=== PATIENT | female | born 1990 | race Caucasian/White ===

== ENCOUNTER → 2024-02-16 06:20 | Day surgery (SDC) | payer BC, SELFPAY | LOC: GI 06:20 | PROVIDERS: ATTENDING PHYSICIAN Internal Medicine Gastroenterology | DX: K62.5 Hemorrhage of anus and rectum (principal); K64.8 Other hemorrhoids; R19.4 Change in bowel habit | CPT/HCPCS: 45380; 88305 ==

== ENCOUNTER → 2024-04-19 13:18 | Outpatient (REF) | payer BC, SELFPAY | LOC: HWRAD 13:18 | PROVIDERS: ATTENDING PHYSICIAN Nurse Practitioner Family | DX: N92.0 Excessive and frequent menstruation with regular cycle (principal) | CPT/HCPCS: 76830; 76856 ==

== ENCOUNTER → 2024-08-07 13:50 | Outpatient (REF) | payer BC, SELFPAY | LOC: RAD 13:50 | PROVIDERS: ATTENDING PHYSICIAN Nurse Practitioner Family | DX: O26.859 Spotting complicating pregnancy, unspecified trimester (principal) | CPT/HCPCS: 76801; 76817 ==

== ENCOUNTER → 2024-09-02 14:04 | Outpatient (REF) | payer BC, SELFPAY | LOC: RAD 14:04 | PROVIDERS: ATTENDING PHYSICIAN Obstetrics & Gynecology | DX: O26.851 Spotting complicating pregnancy, first trimester (principal) | CPT/HCPCS: 76801 ==

== ENCOUNTER → 2024-09-12 15:00 | Outpatient (REF) | payer BC, SELFPAY | LOC: RAD 15:00 | PROVIDERS: ATTENDING PHYSICIAN Student in an Organized Health Care Education/Training Program | DX: O02.1 Missed abortion (principal) | CPT/HCPCS: 76830; 76856 ==

== ENCOUNTER → 2024-09-13 06:14 | Day surgery (SDC) | payer BC, SELFPAY ==
--- NOTE | 2024-09-12 17:55 | HPS.HSE ---
Family Physician
-
Family Physician: NOT KNOW UNKNOWN - PT DOES
Chief Complaint
-
miscarriage
History of Present Illness
Patient is a 33yo who presents for preop visit for D&E for missed . She had an US last week that showed�intrauterine gestational sac containing a pole with CRL measuring 9.5 with no cardiac motion and not satisfactory
interval growth consistent with first trimester intrauterine demise. She was seen last week and was given the option of expectant, medical, or surgical management and she has decided on surgical management with D&E. She started having heavy
bleeding with passage of clots on Monday. She had an hcg drawn on 09/11 that was 500. Repeat US was performed today and showed thickened endometrium measuring 1.2cm with internal vascularity suspicious for retained products of conception.
�
PMHx: thalassemia minor
Meds: denies
Surghx: colonoscopy, cyst removed from behind ear
NKDA
Socialhx: denies tobacco, etoh, or illicit drug use
Famhx: maternal grandmother w/ breast cancer, maternal aunt w/ ovarian cancer, paternal grandmother w/ pancreatic cancer, father w/ kidney cancer
Medical History
Past Medical History
Past Medical History: Reports Other
Additional Past Medical History:
thalassemia minor
Past Surgical History: Reports Other
Additional Past Surgical History:
colonoscopy
Social History
Tobacco: Non-smoker
Alcohol: None
Drug: None
Family History
Family History: Not pertinent
Allergies / Home Medications
Allergies reflects when Allergies were last updated in [facility].
Home Medications with original date entered in [facility]
Allergy/Medication List:
NKDA
Denies mediationsc
Review of Systems
-
A 12 point ROS was completed and negative except as noted: Yes
Physical Exam
Physical Exam
General: Well Developed, Well Nourished and No Apparent Distress
HEENT: NormoCephalic
Respiratory: Non Labored Respirations
Cardiac: Regular Rhythm
Skin: Warm and Dry
Neuro: Awake, Alert and Oriented
Psych: Calm
Impression/Plan
-
IMPRESSION:
Patient is a 33yo with retained products of conception
PLAN:
Options discussed with patient including expectant management, medical, and surgical management with D&E. Risks, benefits, and alternatives discussed to each options and patient desires to proceed with D&E. Risks, benefits, and alternatives to D&E
were discussed including bleeding, infection, damage to surround structures and need for reoperation. Patient agrees to blood transfusion if needed. Risks to blood transfusion discussed. Blood type O+, no RhoGAM indicated. 100mg IV doxycycline
ordered. 200mg doxycycline sent to pharmacy for patient to take at home following the procedure. All questions were answered.
[2024-09-13] VITALS (8 sets, daily range): BP systolic 101–130; BP diastolic 54–80; BMI 25.1
[2024-09-13] MEDS: VIBRAMYCIN 260 MG IV (10:02)
== END ==
LOC: SDS 06:14
PROVIDERS: ATTENDING PHYSICIAN Obstetrics & Gynecology
DX: O03.4 Incomplete spontaneous abortion without complication (principal); Z3A.00 Weeks of gestation of pregnancy not specified
CPT/HCPCS: 59820; 88305

== ENCOUNTER 2025-08-01 07:04 | Observation (INO) | payer BC, SELFPAY ==
[2025-08-01 07:15] VITALS: BP 134/89; BMI 29.9
[2025-08-01 07:43] LABS: Hematocrit 34.3 % (37.0-47.0); Hemoglobin 10.9 g/dL (12.0-16.0); Mean Corp Hgb Conc. 31.8 g/dL (33.0-37.0); Mean Corpuscular Volume 69.0 fL (81.0-99.0); Nucleated Red Blood Cells % 0.4 %; Platelet Count 233 10^3/uL (130-400); Red Cell Dist. Width 17.1 % (11.5-14.5)
[2025-08-01 07:46] LABS: Urine Character Slightly Cloudy (Clear)
[2025-08-01 07:50] LABS: ALT (SGPT) 24 U/L (0-35); AST (SGOT) 25 U/L (14-36); Albumin 3.6 g/dl (3.5-5.0); Alkaline Phosphatase 137 U/L (38-126); Blood Urea Nitrogen 9 mg/dl (7-17); Calcium 9.2 mg/dl (8.4-10.2); Carbon Dioxide 23 mmol/L (22-30); Chloride 107 mmol/L (98-107); Estimated Creatinine Clearance > 125 ml/min; Glucose 138 mg/dl (70-99); Potassium 4.0 mmol/L (3.5-5.1); Sodium 134 mmol/L (135-145); Total Protein 6.4 g/dl (6.3-8.2); eGFR > 60.00
[2025-08-01 08:20] LABS: Urine Squamous Cell >30 /LPF (Few)
[2025-08-01 08:23] LABS: Urine Red Blood Cell 0-2 /HPF (0-2); Urine White Cell 90-100 /HPF (0-5)
[2025-08-01] MEDS: REGLAN 10 MG PO (09:08)
[2025-08-01] MEDS: BENADRYL 25 MG PO (09:08)
== END 2025-08-01 10:00 | disposition home or self-care (01) ==
LOC: LDRP 07:04
PROVIDERS: ADMITTING PHYSICIAN Student in an Organized Health Care Education/Training Program; ATTENDING PHYSICIAN Obstetrics & Gynecology
DX: O26.893 Other specified pregnancy related conditions, third trimester (principal); R51.9 Headache, unspecified; Z3A.35 35 weeks gestation of pregnancy; O99.013 Anemia complicating pregnancy, third trimester; D64.9 Anemia, unspecified
CPT/HCPCS: 59025; 80053; 81003; 81015; 82570; 84156; 85025; 86850; 86900; 86901; G0378

== ENCOUNTER 2025-08-09 10:43 | Inpatient (IN) | payer BC, SELFPAY ==
[2025-08-09 10:48] VITALS: BP 116/83; BMI 30.1
[2025-08-09] MEDS: LR 1000 IV ×2 (11:15→12:13)
[2025-08-09 11:58] LABS: Hematocrit 34.9 % (37.0-47.0); Hemoglobin 10.8 g/dL (12.0-16.0); Mean Corp Hgb Conc. 30.9 g/dL (33.0-37.0); Mean Corpuscular Volume 68.6 fL (81.0-99.0); Nucleated Red Blood Cells % 0.4 %; Platelet Count 236 10^3/uL (130-400); Red Cell Dist. Width 17.2 % (11.5-14.5)
[2025-08-09] MEDS: TYLENOL 975 MG PO (12:08)
[2025-08-09] MEDS: BICITRA 30 ML PO (12:08)
[2025-08-09] MEDS: ANCEF 10 IV (12:14)
[2025-08-09] MEDS: PITOCIN 30 UNITS/NSS 500 ML IV (12:56)
[2025-08-09 13:23] LABS: Cord ABG B.E. - POC -0.9 mmol/L; Cord ABG HCO3 - POC 27 mmol/L; Cord ABG O2 Sat % - POC 22.4 %; Cord ABG pCO2 - POC 58 mmHg; Cord ABG pH - POC 7.29; Cord ABG pO2 - POC 19 mmHg
[2025-08-09] MEDS: TORADOL 15 MG IV (18:41)
[2025-08-10] MEDS: COLACE PO (00:45)
[2025-08-10] MEDS: TORADOL 15 MG IV ×3 (00:45→13:50)
[2025-08-10 04:47] LABS: Hematocrit 29.6 % (37.0-47.0); Hemoglobin 9.3 g/dL (12.0-16.0); Mean Corp Hgb Conc. 31.4 g/dL (33.0-37.0); Mean Corpuscular Volume 68.5 fL (81.0-99.0); Platelet Count 211 10^3/uL (130-400); Red Cell Dist. Width 16.5 % (11.5-14.5)
[2025-08-10] MEDS: PRENATAL PLUS 1 TABLET PO (07:30)
[2025-08-10] MEDS: COLACE 100 MG PO ×2 (07:30→20:21)
[2025-08-10] MEDS: FEOSOL 325 MG PO (10:13)
--- NOTE | 2025-08-10 18:12 | W.PN.ANS.POP ---
Anesthesia Post Operative
- Anesthesia Post Op Note
Vital Signs Stable-See Nursing Note: Yes
Airway Patent: Yes
Adequate Pain Control: Yes
Change in Mental Status: No
Current Postoperative Nausea & Vomiting: No
Anesthesia Complications: No
General Anesthetic Recall: No
Unplanned Admission: No
Post Op Hydration Adequate: Yes
[2025-08-10] MEDS: TYLENOL 650 MG PO (20:20)
[2025-08-10] MEDS: MOTRIN 600 MG PO (20:21)
[2025-08-11] MEDS: TYLENOL 650 MG PO ×3 (05:33→20:17)
[2025-08-11] MEDS: MOTRIN 600 MG PO ×3 (05:34→20:18)
[2025-08-11 08:27] LABS: Cord VBG B.E. - POC -2.3 mmol/L; Cord VBG HCO3 - POC 25 mmol/L; Cord VBG pCO2 - POC 48 mmHg; Cord VBG pH - POC 7.32; Cord VBG pO2 - POC < 18 mmHg
[2025-08-11] MEDS: PRENATAL PLUS 1 TABLET PO (08:35)
[2025-08-11] MEDS: FEOSOL 325 MG PO (08:35)
[2025-08-11] MEDS: COLACE 100 MG PO ×2 (08:35→20:19)
[2025-08-12] MEDS: TYLENOL 650 MG PO ×2 (02:13→07:51)
[2025-08-12] MEDS: MOTRIN 600 MG PO ×2 (02:13→07:50)
[2025-08-12] MEDS: PRENATAL PLUS 1 TABLET PO (07:50)
[2025-08-12] MEDS: FEOSOL 325 MG PO (07:51)
[2025-08-12] MEDS: COLACE 100 MG PO (07:51)
[2025-08-12 14:56] LABS: Syphilis/T. pallidum Ab Reflex Negative (Negative)
== END 2025-08-12 12:09 | disposition home or self-care (01) | DRG 788 ==
LOC: LDRP 10:43
PROVIDERS: Obstetrics & Gynecology; ADMITTING PHYSICIAN Student in an Organized Health Care Education/Training Program
PROC: 10D00Z1 Extraction of Products of Conception, Low, Open Approach (ICD-10-PCS; 2025-08-09)
DX: O64.8XX0 Obstructed labor due to other malposition and malpresentation, not applicable or unspecified (principal); Z3A.37 37 weeks gestation of pregnancy; Z37.0 Single live birth
CPT/HCPCS: 85025; 85027; 86780; 86850; 86900; 86901